=== PATIENT | female | born 1940 | race Caucasian/White ===

== ENCOUNTER → 2019-04-01 | Outpatient (CLI) | payer OTHER ==
[~2019-04-01] MED LIST: ASPIRIN EC81 M1 PO; CALTRATE-600 W1 EACH PO; CEFTIN 250 MG250 MG PO; CENTRUM SILVER1 EAC3 PO; COLACE100 MG PO; COUMADIN 2 MG TA2 M1 PO; COUMADIN 5 MG TA5 M1 PO; COUMADIN PO; COZAAR 50 MG TA50 M1 PO; FISH OIL 1,001000 M2 PO; FLAX OIL1000 MG PO; HYDROCHLOROTHIA25 M1 PO; HYDROCODON-ACE1 EAC5 PO; IRON325 PO; MIRALAX17 GM PO; OXYBUTYNIN 5 MG5 M1 PO; PANTOPRAZOLE SO40 MG PO; PERCOCET 10-321 EACH PO; SENNA LAX8.6 MG PO; TYLENOL325 MG PO; VYTORIN 10-401 EACH PO
--- NOTE | 2019-04-01 11:26 | 2DMMODE ---
[facility] [employer] [place] [address] 2 D/M-MODE ECHOCARDIOGRAM Name: WATERMANSHEA Teodoro Room #: [facility]#: [id number] ������������� Admission: 04/01/19 ������������� Attend Phys: Tyrone Pandya MD Discharge: ��� ������������� ��� Date of : 40 Date of Service: 04/01/19 1125 �� Report #: [id number] �������� ��������������������������������������������[id number] THIS REPORT FOR: //name// APPROVED REPORT Study performed: 04/01/2019 10:09:19 EXAM: Comprehensive 2D, Doppler, and color-flow Echocardiogram Patient Location: Out-Patient Status: routine BSA: 1.78 HR: 83 bpm BP: 110/70 mmHg Other Information Study Quality: Adequate Indications Atrial Fibrillation Hypertension/HDD 2D Dimensions RVDd: 37.65 mm IVSd: 10.59 (7-11mm) LVOT Diam: 17.43 (18-24mm) LVDd: 51.40 mm PWd: 10.72 (7-11mm) Ascending Ao: 26.28 (22-36mm) LVDs: 35.68 (25-40mm) Aortic Root: 26.98 mm IVC: 12.00 mm Volumes Left Atrial Volume (Systole) Single Plane 4CH: 70.09 mL Single Plane 2CH: 51.10 mL LA ESV Index: 38.00 mL/m2 Aortic Valve AoV Peak Braxton.: 1.61 m/s AO Peak Gr.: 10.42 mmHg LVOT Max P.53 mmHg LVOT Max V: 1.28 m/s ROCIO Vmax: 1.89 cm2 Mitral Valve E/A Ratio: 0.7 MV Decel. Time: 280.78 ms MV E Max Braxton.: 0.84 m/s [facility] [address] [place] [address] 2 D/M-MODE ECHOCARDIOGRAM Name: SHEA WATERMAN Room #: [facility]#: [id number] ������������� Admission: 04/01/19 ������������� Attend Phys: Tyrone Pandya MD Discharge: ��� ������������� ��� Date of : 40 Date of Service: 04/01/19 1125 �� Report #: [id number] �������� ��������������������������������������������[id number] MV A Braxton.: 1.17 m/s MV PHT: 81.43 ms IVRT: 96.89 ms Pulmonary Valve PV Peak Braxton.: 1.26 m/s PV Peak Gr.: 6.38 mmHg Pulmonary Vein P Vein S: 0.76 m/s P Vein A: 0.23 m/s P Vein D: 0.49 m/s P Vein A Dur.: 143.0 msec P Vein S/D Ratio: 1.55 Tricuspid Valve TR Peak Braxton.: 2.82 m/s RAP Estimate: 5.00 mmHg TR Peak Gr.: 31.87 mmHg PA Pressure: 37.00 mmHg Left Ventricle The left ventricle is normal size. There is normal left ventricular wall thickness. The left ventricular systolic function is normal. The left ventricular ejection fraction is within the normal range. LVEF is 55-60%. Transmitral Doppler flow pattern suggests impaired LV relaxation. Right Ventricle The right ventricle is normal size. The right ventricular systolic function is normal. Atria Left atrium is mild to moderately dilated. Right atrium is mildly dilated. Aortic Valve The aortic valve is normal in structure. No aortic regurgitation is present. There is no aortic valvular stenosis. Mitral Valve The mitral valve is normal in structure. Mild to moderate mitral regurgitation. No evidence of mitral valve stenosis. Tricuspid Valve The tricuspid valve is normal in structure. Mild tricuspid regurgitation. PAP is estimated at 37 mmHg. Pulmonic Valve The pulmonary valve is normal in structure. Mild pulmonic [address] [address] 2 D/M-MODE ECHOCARDIOGRAM Name: WATERMANSHEA Room #: [facility]#: [id number] ������������� Admission: 04/01/19 ������������� Attend Phys: Tyrone Pandya MD Discharge: ��� ������������� ��� Date of : 40 Date of Service: 04/01/19 1125 �� Report #: [id number] �������� ��������������������������������������������[id number] regurgitation. Great Vessels The aortic root is normal in size. IVC is normal in size and collapses >50% with inspiration. Pericardium There is no pericardial effusion. <Conclusion> The left ventricle is normal size. There is normal left ventricular wall thickness. The left ventricular systolic function is normal. Transmitral Doppler flow pattern suggests impaired LV relaxation. The right ventricle is normal size. Left atrium is mild to moderately dilated. Right atrium is mildly dilated. The aortic valve is normal in structure. Mild to moderate mitral regurgitation. Mild tricuspid regurgitation. PAP is estimated at 37 mmHg. ��������������������������������������������� <ELECTRONICALLY SIGNED> ���������������������������������������� By: Tyrone Pandya MD ��������������������������������������������� 04/01/19 1125 1125 1125 Tyrone Pandya MD /INF
== END ==
LOC: CV 07:34
DX: I08.8 Other rheumatic multiple valve diseases (principal); I48.91 Unspecified atrial fibrillation; I10 Essential (primary) hypertension

== ENCOUNTER → 2019-10-07 | Outpatient (CLI) | payer OTHER | LOC: SJCVC 10:29 | DX: I10 Essential (primary) hypertension (principal); I48.0 Paroxysmal atrial fibrillation; E78.5 Hyperlipidemia, unspecified; E78.00 Pure hypercholesterolemia, unspecified; Z79.899 Other long term (current) drug therapy; M19.90 Unspecified osteoarthritis, unspecified site; Z90.49 Acquired absence of other specified parts of digestive tract; Z90.5 Acquired absence of kidney; Z82.49 Family history of ischemic heart disease and other diseases of the circulatory system; Z87.891 Personal history of nicotine dependence ==

== ENCOUNTER → 2019-11-01 | Outpatient (CLI) | payer OTHER | LOC: SJCVCIMAG 10:04 | DX: I08.0 Rheumatic disorders of both mitral and aortic valves (principal); I48.91 Unspecified atrial fibrillation ==

== ENCOUNTER → 2020-05-06 | Outpatient (CLI) | payer OTHER | LOC: SJCVC 09:57 | PROVIDERS: ATTEND Internal Medicine Cardiovascular Disease | DX: I48.0 Paroxysmal atrial fibrillation (principal); R94.31 Abnormal electrocardiogram [ECG] [EKG]; I10 Essential (primary) hypertension; R60.9 Edema, unspecified; E78.00 Pure hypercholesterolemia, unspecified; K21.9 Gastro-esophageal reflux disease without esophagitis; M19.90 Unspecified osteoarthritis, unspecified site; Z87.891 Personal history of nicotine dependence; Z79.899 Other long term (current) drug therapy ==

== ENCOUNTER → 2020-11-04 | Outpatient (CLI) | payer OTHER | LOC: SJCVC 13:55 | PROVIDERS: ATTEND Internal Medicine Cardiovascular Disease | DX: I48.0 Paroxysmal atrial fibrillation (principal); I10 Essential (primary) hypertension; R60.9 Edema, unspecified; E78.00 Pure hypercholesterolemia, unspecified; K21.9 Gastro-esophageal reflux disease without esophagitis; E78.5 Hyperlipidemia, unspecified; Z79.899 Other long term (current) drug therapy; Z87.891 Personal history of nicotine dependence; Z82.49 Family history of ischemic heart disease and other diseases of the circulatory system ==

== ENCOUNTER → 2021-04-28 | Outpatient (CLI) | payer OTHER | LOC: SJCVC 10:14 | PROVIDERS: ATTEND Internal Medicine Cardiovascular Disease | DX: R94.31 Abnormal electrocardiogram [ECG] [EKG] (principal); I48.91 Unspecified atrial fibrillation; I47.1 Supraventricular tachycardia; I48.0 Paroxysmal atrial fibrillation; I12.9 Hypertensive chronic kidney disease with stage 1 through stage 4 chronic kidney disease, or unspecified chronic kidney disease; R60.9 Edema, unspecified; K21.9 Gastro-esophageal reflux disease without esophagitis; N18.9 Chronic kidney disease, unspecified; E78.00 Pure hypercholesterolemia, unspecified; Z79.899 Other long term (current) drug therapy; Z87.891 Personal history of nicotine dependence; Z72.89 Other problems related to lifestyle ==